=== PATIENT | female | born 1980 | race Caucasian/White ===

== ENCOUNTER 2017-05-06 11:11 | Emergency (ER) | payer OTHER, BC ==
[2017-05-06 11:24] VITALS: BP 137/88
--- NOTE | 2017-05-06 12:39 | CT ---
Head CT Technique: Multiple axial sections through the brain were obtained. Intravenous contrast was not utilized. Comparison: No prior head CT exam is available. Findings: Ventricles along with basal cisterns and sulci over the convexities are within normal limits for the patient's age. No abnormal parenchymal densities are seen. No evidence of intracranial hemorrhage. No midline shift or mass effect is seen. Bone window settings were reviewed which shows the visualized sinuses to appear clear. No acute calvarial abnormality is seen. Impression: 1. Nothing acute is identified on noncontrast head CT exam. Diagnostic code #1
--- NOTE | 2017-05-06 12:58 | EDM.PDOC ---
ED HPI GENERAL MEDICAL PROBLEM - General Chief Complaint: Head Injury Stated Complaint: HEAD INJURY Time Seen by Provider: 05/06/17 11:52 Source of Information: Reports: Patient History Limitations: Reports: No Limitations - History of Present Illness INITIAL COMMENTS - FREE TEXT/NARRATIVE: 36-year-old female presents for evaluation and treatment of head injury. Reportedly the patient was ice skating. She fell around 10:30 today. She went backwards landing first on her buttocks and hitting the back of her head on ice. Her friend reports hearing a very loud cracking sound. She states she did not lose consciousness but she has retrograde amnesia surrounding the event. Friend reports they helped her off the ice and had her sit on a chair. She did not recall about 10 minutes worth of time around the fall. She is currently denying any nausea, vomiting, blurry vision, double vision or any neck pain. She does have a headache. No chest pain or shortness of breath. No pain in her back. She did have a Motrin prior to arrival in the ER. Treatments GARDEN CONSULTANT: Reports: Other (see below) Other Treatments GARDEN CONSULTANT: motrin GARDEN CONSULTANT Head Pain Score (Numeric/FACES): 5 - Related Data Allergies Allergy/AdvReac Type Severity Reaction Status Date / Time ciprofloxacin HCl Allergy Anaphylactic Verified 05/06/17 11:19 [From Cipro] Shock levofloxacin [From Levaquin] Allergy Anaphylactic Verified 05/06/17 11:19 Shock Home Meds: Home Meds Levothyroxine Sodium [Levoxyl] 125 mcg PO DAILY 11/28/14 [History] Compounded T3. 1 dose PO DAILY 05/06/17 [History] Past Medical History Other Cardiovascular History: varicose veins in leg Other Psychiatric History: pt states that she recently had given to her still born child at 37 weeks gestation Other Endocrine/Metabolic History: Margot's disease Social & Family History - Tobacco Use Smoking Status *Q: Never Smoker Second Hand Smoke Exposure: No - Recreational Drug Use Recreational Drug Use: No ED ROS GENERAL - Review of Systems Review Of Systems: See Below HEENT: Denies: Vision Change GI/Abdominal: Denies: Nausea, Vomiting Neurological: Reports: Headache, Other (antrograde amnesia around 10 minutes). Denies: Numbness, Syncope, Tingling ED EXAM, HEAD INJURY - Physical Exam Exam: See Below Exam Limited By: No Limitations General Appearance: Alert, WD/WN, No Apparent Distress Head: Atraumatic, Normocephalic Nexus Criteria: No: Posterior, Midline Cervical Tenderness, Evidence of Intoxication, Altered Level of Consciousness, Focal Neurological Deficit, Painful Distraction Injuries Eyes: Bilateral Eye: EOMI, Normal Inspection, PERRL Ears: Normal External Exam. No: TM Blood Nose: Normal Inspection Throat/Mouth: Normal Inspection, Normal Lips, Normal Voice, No Airway Compromise Neck: Non-Tender, Full Range of Motion, Normal Alignment, Normal Inspection Respiratory: No Respiratory Distress, Lungs Clear, Normal Breath Sounds Cardiovascular: Normal Peripheral Pulses, Regular Rate, Rhythm, No Murmur Neurologic: surveying or spatial science technician II-XII nml As Tested, Alert, Normal Mood/Affect, Oriented x 3, Other (normal finger to nose testing, normal heel to beck testing, normal gait) Skin: Normal Color, Warm/Dry - [place] Coma Score Best Eye Response (Hany): (4) Open Spontaneously Best Verbal Response (Hany): (5) Oriented Best Motor Response ([place]): (6) Obeys Commands Course - Vital Signs Last Recorded V/S: Last Vital Signs Temp 36.2 C 05/06/17 11:20 Pulse 82 05/06/17 11:20 Resp 16 05/06/17 11:20 BP 137/88 05/06/17 11:20 Pulse Ox 98 05/06/17 11:20 - Radiology Interpretation Free Text/Narrative:: Head CT Technique: Multiple axial sections through the brain were obtained. Intravenous contrast was not utilized. Comparison: No prior head CT exam is available. Findings: Ventricles along with basal cisterns and sulci over the convexities are within normal limits for the patient's age. No abnormal parenchymal densities are seen. No evidence of intracranial hemorrhage. No midline shift or mass effect is seen. Bone window settings were reviewed which shows the visualized sinuses to appear clear. No acute calvarial abnormality is seen. Impression: 1. Nothing acute is identified on noncontrast head CT exam. - Re-Assessments/Exams Free Text/Narrative Re-Assessment/Exam: 05/06/17 12:[address] results with the patient. I feel she likely has a concussion. Will discharge home with follow-up. Discharge instructions as documented. Departure - Departure Time of Disposition: 12:54 Disposition: Home, Self-Care 01 Condition: Fair Clinical Impression: Concussion injury of brain - Discharge Information Instructions: Concussion, Adult, [id number] Referrals: Finesse Reagan [Primary Care Provider] - Forms: ED Department Discharge Additional Instructions: [id number] Tylenol and Motrin as needed for headache and symptoms. Rest. Recommend brain rest. Recommend reducing stimulating activity such as TV, computer, reading, etc. as much as you're able to. Follow-up with your primary care provider in 1-2 weeks for recheck of your symptoms. Please return the ER if your symptoms change or worsen. In particular related to see you for any seizures, headaches not relieved by Tylenol or Motrin, more than 2 episodes of vomiting, change in demeanor any other concerning symptoms.
== END 2017-05-06 13:05 | disposition home or self-care (01) ==
LOC: JD.ED 11:11
DX: S06.0X0A Concussion without loss of consciousness, initial encounter (principal); Z88.1 Allergy status to other antibiotic agents; Z79.899 Other long term (current) drug therapy; Z88.8 Allergy status to other drugs, medicaments and biological substances; W18.00XA Striking against unspecified object with subsequent fall, initial encounter; Y93.21 Activity, ice skating
CPT/HCPCS: 70450; 70450-26; 99284; 99284-25

== ENCOUNTER 2019-12-25 14:15 | Emergency (ER) | payer OTHER ==
[2019-12-25 14:52] VITALS: BP 114/71; PULSE 75
--- NOTE | 2019-12-25 15:54 | EDM.PDOC ---
ED HPI GENERAL MEDICAL PROBLEM - General Chief Complaint: Abdominal Pain Stated Complaint: 23 WEEKS PREG, POSSIBLE HERNIA Time Seen by Provider: 12/25/19 15:54 - History of Present Illness INITIAL COMMENTS - FREE TEXT/NARRATIVE: Patient left without being seen - Related Data Allergies Allergy/AdvReac Type Severity Reaction Status Date / Time ciprofloxacin HCl Allergy Anaphylactic Verified 12/25/19 14:52 [From Cipro] Shock levofloxacin [From Levaquin] Allergy Anaphylactic Verified 12/25/19 14:52 Shock Home Meds: Home Meds #103/Iron Fumarate/Fa [ ] 1 tab PO DAILY 12/25/19 [History] Past Medical History Other Cardiovascular History: varicose veins in leg COMMUNITY HEALTH EDUCATION COORDINATOR History: Reports: Other COMMUNITY HEALTH EDUCATION COORDINATOR History: G 6: p 4 Psychiatric History: Reports: Anxiety, Depression Other Psychiatric History: pt states that she recently had given to her still born child at 37 weeks gestation Other Endocrine/Metabolic History: Margot's disease - Infectious Disease History Infectious Disease History: Reports: None Social & Family History - Tobacco Use Smoking Status *Q: Never Smoker - Recreational Drug Use Recreational Drug Use: No ED ROS GENERAL - Review of Systems Review Of Systems: Unable To Obtain Reason Not Obtained: Left without being seen ED EXAM, GI/ABD - Physical Exam Exam: See Below Text/Narrative:: Left without being seen Course - Vital Signs Last Recorded V/S: Last Vital Signs Temp 36.5 C 12/25/19 14:45 Pulse 75 12/25/19 14:45 Resp 20 12/25/19 14:45 BP 114/71 12/25/19 14:45 Pulse Ox 100 12/25/19 14:45 Departure - Departure Time of Disposition: 13:00 Disposition: Left Without Being Seen 07 Clinical Impression: Patient left without being seen - Discharge Information Referrals: Kera Arroyo MD [Primary Care Provider] - Forms: ED Department Discharge Sepsis Event Note (ED) - Evaluation Sepsis Screening Result: No Definite Risk - Focused Exam Vital Signs: Vital Signs Temp Pulse Resp BP Pulse Ox 12/25/19 14:45 36.5 C 75 20 114/71 100
== END 2019-12-25 16:30 | disposition left against medical advice (07) ==
LOC: JD.ED 14:15
DX: Z53.21 Procedure and treatment not carried out due to patient leaving prior to being seen by health care provider (principal)

== ENCOUNTER 2020-04-29 06:52 | Inpatient (IN) | payer OTHER ==
--- NOTE | 2020-04-27 15:04 | PCM.LDHP ---
L&D History of Present Illness - General Date of Service: 04/29/20 Admit Problem/Dx: Admission Diagnosis/Problem Admission Diagnosis/Problem 04/27/20 14:42 Kimberley is a 39-year-old 6 para 4-1-0-4 white female who has an JOSE of 05/06/2020 placing her at 39-0/7 weeks gestational age upon admission on 04/29/2020 for an induction of labor. Source of Information: Patient History Limitations: Reports: No Limitations - History of Present Illness Introduction:: Kimberley is a 39-year-old 6 para 4-1-0-4 white female who has an JOSE of 05/06/2020 placing her at 39-0/7 weeks gestational age upon admission on 04/29/2020 for an induction of labor. The procedure/process of induction of labor, its risks, benefits, alternatives of care including allowing for natural onset of labor all discussed with patient as well as the follow-up of labor. She appears understand and wishes to proceed. Patient is interested in delivery at this time because of history of stillbirth which occurred with her last at 36 weeks gestational age secondary to cord accident. She also has a large fibroid measuring approximately 10.5 x 6.9 x 8.1 cm which has increased in size during the course of the . OPERATIONS SUPPORT MANAGER history: Kimberley is a 6 para 4-1-0-4. Her JOSE of 05/06/2020 was determined by an early ultrasound and supported by multiple other ultrasounds during the course of the She had menarche at approximately 14 to 15 years. She had regular menses on a monthly basis. Not using any control at the time of conception. She denies any STIs or abnormal Pap smears in the past. Her obstetric history includes the followin. Male infant born 09/28/2001-39 weeks - 6 hours of labor7 pounds [address] ouncesNS[facility] Male infant born 10/20/2004-41 weeks - 14 hours of labor7 pounds 8 ounces- NSVDuseSt. [facility]. Male infant born 09/23/2005-41 weeks gestational age17 hours of labor8 pounds 9 ouncesNSVDepidural used-[facility] child's name is Wilman Dang. Female infant born 5 [birth year]-38 weeks gestational age8 hours of labor6 pounds 3 ouncesNSVDspinal anesthesia useSt. [facility]. Female infantfetal demiseinduced labor on 11/08/2014 at 36-4/7 weeks gestational agesuspected cord accident as cause of demise course: Patient was initially seen by Dr. North during the course of this and transferred care at 33-1/7 weeks gestational age. She was seen regularly before transfer and after transfer. Because of patient's past history she underwent testing on a weekly basis with biophysical profiles which all were reassuring. Ultrasound done serially showed a steady increase in a fibroid located anteriorly and to the left side and above the pelvis. This fibroid on her most recent evaluation on 04/16/2020 was 10.5 x 6.9 x 8.1 cm. Patient has had 2 hernias which have enlarged during the course of the . AN umbilical hernia opening measuring 1.5 cm on ultrasound and an upper abdominal anterior wall hernia wall opening measuring 2.1 cm on ultrasound. Both have been relatively symptomatic during the course of the . Patient reports good activity. She desires an epidural. Group B strep screen is negative. Patient has a history of Margot's disease but early levels were normal. She began taking levothyroxine late in the at a dosage of 25 mcg/day due to an increasing TSH indicating hypothyroidism. She has heterozygous MTHFR mutation [id number]. She has a history of polycystic ovarian syndrom Varicose veins are present especially in her right lower extremity which are severe and symptomatic. Patient has been using support stockings for therapy. She also has had a vitamin D deficiency and has been taking replacement. Patient is rubella immune. She had her hepatitis B immunization in 1995. Allergies: 1. Levaquin tabs which cause anaphylaxis 2. Cipro tabs which cause anaphylaxis 3. Gluten which causes GI upset 4. Dairy products which cause GI upset Medications: 1. Levothyroxine sodium 25 mcg/day 2. vitamins 1 p.o. daily 3. Folic acid 400 mcg p.o. daily 4. Vitamin D1 0.25 mg (50,000 units 1 capsule weekly for 6 weeks during the course of the . Past medical history: 1. x5 2. One of her NSVDs was a demise at 36+ weeks gestational age 3. Severe lower extremity varicositiesright leg greater than left leg 4. Hypothyroidism on replacementpatient has had Margot's disease. 5. Significant allergies with Cipro and Levaquin which cause anaphylaxis. Past surgical history: 1. Cholecystectomy 2007 2. [place] teeth extraction 2000 Family history: Mother is alivestatus post hysterectomy for benign reasons. Father is alive and well but has a history of hepatitis. 2 brothers and 3 sisters alive and well. Maternal grandfather with hypothyroidism coronary artery bypass graft and prostate cancer. Maternal grandmother with stent placement. Paternal grandfather secondary to Alzheimer's disease. Paternal grandmother secondary to old age. No anesthesia, clotting, bleeding, related problems otherwise noted in the family. 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 They live in the [place], [place] area. She is a college graduate. 's name is Dov. She does not use any significant alcohol, drugs or tobacco. Review of systems: In general patient has no complaints. Baby has been active. No significant contractions have been noted. Skin: Negative Lungs: No infectious symptoms or shortness of breath Cardiovascular: No chest pain or exercise intolerance Breasts: No lumps, changes in size, pain, dimpling, discharge or axillary or supraclavicular concerns. changes GI: Negative : Body habitus changes associated with . Musculoskeletal/extremity: Significant for severe varicosities in bilateral lower extremities right side greater than left Neurological: Negative Physical exam: In general the patient is well-developed, well-nourished, pleasant female of stated age in no acute distress. On last evaluation clinic on 04/24/2020 her blood pressure was 102/68. Her weight was 238 with a pre weight of 237.4 pounds. Height is 5 feet 8 inches. Prepregnancy body mass index 32.7. Her heart rate was 144 and her fundal height was 39.5 cm which was proximately a week ahead of schedule. Baby is in a vertex presentation. Uterine fibroid palpated in left lower quadrant. Skin is warm dry without lesions. HEENT, neck and back within normal limits. Lungs are clear with good breath sounds in all lung gordon. Cardiovascular exam shows regular and rhythm without murmurs. Breast exam is deferred at this time. Patient does plan to breast-feed. Abdomen is gravid with fundal height of 39.5 cm. Patient has 2 hernias one anterior midline above the uterus which is about 4 x 5 cm in diameter and bulges approximately 1 cm. Second 1 is an umbilical hernia which is about 1.5 cm in diameter. Baby is felt to be in vertex presentation by Alhaji maneuvers and by cervical exam. Genital per digital exam shows cervix to be 2 cm, 60% effaced, soft, mid position and -3 station.. Extremities and neurological exam show bilateral lower extremity varicosities right side greater than left. Or varicosities are less extreme.. - Related Data Allergies/Adverse Reactions: Allergies Allergy/AdvReac Type Severity Reaction Status Date / Time ciprofloxacin HCl Allergy Anaphylactic Verified 12/25/19 14:52 [From Cipro] Shock levofloxacin [From Levaquin] Allergy Anaphylactic Verified 12/25/19 14:52 Shock Home Medications: Home Meds #103/Iron Fumarate/Fa [ ] 1 tab PO DAILY 12/25/19 [History] Past Medical History Other Cardiovascular History: varicose veins in leg OPERATIONS SUPPORT MANAGER History: Reports: Other OB/BYN History: G 6: p 4 Psychiatric History: Reports: Anxiety, Depression Other Psychiatric History: pt states that she recently had given to her still born child at 37 weeks gestation Other Endocrine/Metabolic History: Margot's disease - Infectious Disease History Infectious Disease History: Reports: None H&P Review of Systems - Review of Systems: Review Of Systems: See Below L&D Exam - Exam Exam: See Below Problem List Initiated/Reviewed/Updated: Yes Assessment/Plan Comment:: 1. Kimberley is a 39-year-old 6 para 4-1-0-4 white female who has an JOSE of 05/06/2020 placing her at 39-0/7 weeks gestational age upon admission on 04/29/2020 for an induction of labor. 2. Risk factors for the include the following: History of 36-2/7-week demise secondary to cord accident with last , uterine fibroid measuring 10.5 cm in greatest dimension, hernia x2 as described above, history of Margot's disease now hypothyroid on replacement, MTHFR mutation [id number] status, history of PCOS, history of severe lower extremity varicosities 3. Group B strep negative 4. Patient desires epidural in labor 5. Patient plans to breast-feed 6. The patient is aware that a large uterine fibroid as she has may interfere with descent of the baby. She is aware that this may increase her risk for section. Plan: 1. Pitocin induction of labor followed by AROM augmentation when possible 2. Epidural as needed per patient desire 3. Monitor labor very closely because of history of fibroid and because of history of demise. 4. Maintain thyroid hormone replacement in the hospital 5. Support breast-feeding decision if she desires to proceed in that fashion 6. Routine labor care 7. Admission labs to include CBC, COVID-19 testing, RPR
[~2020-04-29 06:52] MED LIST: Bupivacaine 0.25% 10 ML SDV ONE
[2020-04-29] MEDS ORDERED: Ondansetron 4 MG/2 ML SDV IVPUSH PRN ×2 (07:00→11:00)
[2020-04-29] MEDS ORDERED: Oxytocin/Lactated Ringers 10 UNIT/1,000 ML BAG IV SCH ×2 (07:00→07:15)
[2020-04-29] MEDS ORDERED: Nalbuphine 10 MG/1 ML Vial IVPUSH PRN (07:00)
[2020-04-29] MEDS ORDERED: Sodium Chloride 0.9% 10 ML Syringe FLUSH PRN (07:00)
[2020-04-29] MEDS: Lactated Ringers 1,000 ML IV SCH ×4 (07:56→15:22)
[2020-04-29] MEDS ORDERED: ePHEDrine 50 MG/ML SDV IVPUSH PRN (11:00)
[2020-04-29] MEDS ORDERED: Bupivacaine/fentaNYL/NS 100 ML Bag EPIDUR SCH (11:00)
[2020-04-29] MEDS ORDERED: fentaNYL 100 MCG/2 ML SDV EPIDUR ONE (11:02)
--- NOTE | 2020-04-29 11:06 | PCM.PREANE ---
Preanesthetic Assessment - Procedure Proposed Procedure: epidural - Anesthesia/Transfusion/Family Hx Anesthesia History: Prior Anesthesia Without Reaction Family History of Anesthesia Reaction: No Transfusion History: No Prior Transfusion(s) Intubation History: Unknown - Review of Systems General: No Symptoms Pulmonary: No Symptoms Cardiovascular: No Symptoms Gastrointestinal: No Symptoms (GERD) Neurological: No Symptoms Other: Reports: Thyroid Problems (Hypothyroid/Hashimot's disease) - Physical Assessment NPO Status Date: 04/29/20 NPO Status Time: 08:00 Vital Signs: Last Vital Signs Temp 37.0 C 04/29/20 07:00 Pulse 81 04/29/20 07:00 Resp 16 04/29/20 07:00 BP 122/74 04/29/20 07:00 Pulse Ox 99 04/29/20 07:00 Height: 1.73 m Weight: 108.771 kg ASA Class: 2 Mental Status: Alert & Oriented x3 Airway Class: Mallampati = 2 Dentition: Reports: Normal Dentition, Caries Thyro-Mental Finger Breadths: 3 Mouth Opening Finger Breadths: 3 ROM/Head Extension: Full Lungs: Clear to Auscultation, Normal Respiratory Effort Cardiovascular: Regular Rate, Regular Rhythm, No Murmurs - Lab Values: Laboratory Last Values WBC 9.15 K/mm3 (3.98-10.04) 04/29/20 07:20 RBC 3.97 M/mm3 (3.98-5.22) L 04/29/20 07:20 Hgb 11.5 gm/dl (11.2-15.7) D 04/29/20 07:20 Hct 34.0 % (34.1-44.9) L 04/29/20 07:20 MCV 85.6 fl (79.4-94.8) 04/29/20 07:20 MCH 29.0 pg (25.6-32.2) 04/29/20 07:20 MCHC 33.8 g/dl (32.2-35.5) 04/29/20 07:20 RDW Std Deviation 41.9 fL (36.4-46.3) 04/29/20 07:20 Plt Count 266 K/mm3 (182-369) 04/29/20 07:20 MPV 9.5 fl (9.4-12.3) 04/29/20 07:20 Neut % (Auto) 68.8 % (34.0-71.1) 04/29/20 07:20 Lymph % (Auto) 19.2 % (19.3-51.7) L 04/29/20 07:20 [place] % (Auto) 9.4 % (4.7-12.5) 04/29/20 07:20 Eos % (Auto) 1.6 (0.7-5.8) 04/29/20 07:20 Baso % (Auto) 0.2 % (0.1-1.2) 04/29/20 07:20 Neut # (Auto) 6.29 K/mm3 (1.56-6.13) H 04/29/20 07:20 Lymph # (Auto) 1.76 K/mm3 (1.18-3.74) 04/29/20 07:20 [place] # (Auto) 0.86 K/mm3 (0.24-0.36) H 04/29/20 07:20 Eos # (Auto) 0.15 K/mm3 (0.04-0.36) 04/29/20 07:20 Baso # (Auto) 0.02 K/mm3 (0.01-0.08) 04/29/20 07:20 SARS-CoV-2 RNA (JOHNNIE) Negative (NEGATIVE) 04/29/20 07:10 Above labs reviewed and noted and within acceptable ranges to proceed with epidural. - Allergies Allergies/Adverse Reactions: Allergies Allergy/AdvReac Type Severity Reaction Status Date / Time ciprofloxacin HCl Allergy Anaphylactic Verified 04/29/20 07:00 [From Cipro] Shock Dairy Products Allergy Other Verified 04/29/20 07:00 gluten Allergy Other Verified 04/29/20 07:00 levofloxacin [From Levaquin] Allergy Anaphylactic Verified 04/29/20 07:00 Shock - Anesthesia Plan Pre-Op Medication Ordered: None - Acknowledgements Anesthesia Type Planned: Epidural Pt an Appropriate Candidate for the Planned Anesthesia: Yes Alternatives and Risks of Anesthesia Discussed w Pt/Guardian: Yes Pt/Guardian Understands and Agrees with Anesthesia Plan: Yes PreAnesthesia Questionnaire HEENT History: Reports: Other (See Below) Other HEENT History: wears glasses Other Cardiovascular History: varicose veins in right leg SENIOR DESIGNER History: Reports: Fibroids, , Other (See Below) Other OB/BYN History: PCOS, 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 MTHFR gene mutation Psychiatric History: Reports: Anxiety, Depression Other Psychiatric History: pt states that she recently had given to her still born child at 37 weeks gestation Other Endocrine/Metabolic History: Margot's disease. vitamin d deficiency. - Infectious Disease History Infectious Disease History: Reports: Chicken Pox - Past Surgical History HEENT Surgical History: Reports: Oral Surgery GI Surgical History: Reports: Cholecystectomy, Hernia, Abdominal, Other (See Below) Other GI Surgeries/Procedures: 2 hernias - SUBSTANCE USE Tobacco Use Status *Q: Never Tobacco User Recreational Drug Use History: No - HOME MEDS Home Medications: Home Meds Folic Acid 0.4 mg PO DAILY 04/28/20 [History] Levothyroxine Sodium [Levothyroxine] 25 mcg PO DAILY 04/28/20 [History] No122/Iron/Folic Acid [ Multi Tablet] 1 each PO DAILY 04/28/20 [History] - CURRENT (IN HOUSE) MEDS Current Meds: Current Medications Ephedrine Sulfate (Ephedrine Sulfate) 5 mg IVPUSH ASDIRECTED PRN PRN Reason: Hypotension Fentanyl/Bupivacaine HCl (Fentanyl/Bupivacaine/Ns 2 Mcg-0.125% 100 Ml) 100 ml EPIDUR ASDIRECTED MIKAELA Oxytocin/Lactated Ringer's (Pitocin In Lr 10 Units/1,000 Ml) 10 unit in 1,000 mls @ 500 mls/hr IV .CONTINUOUS MIKAELA Lactated Ringer's (Ringers, Lactated) 1,000 mls @ 100 mls/hr IV ASDIRECTED MIKAELA Last Admin: 04/29/20 07:56 Dose: 100 mls/hr Documented by: Oxytocin/Lactated Ringer's (Pitocin In Lr 10 Units/1,000 Ml) 10 unit in 1,000 mls @ 12 mls/hr IV TITRATE MIKAELA; Protocol Last Titration: 04/29/20 09:47 Dose: 10 munits/min, 60 mls/hr Documented by: Nalbuphine HCl (Nubain) 10 mg IVPUSH Q2H PRN PRN Reason: Pain Ondansetron HCl (Zofran) 4 mg IVPUSH Q4H PRN PRN Reason: Nausea/Vomiting Ondansetron HCl (Zofran) 4 mg IVPUSH ONETIME PRN PRN Reason: Nausea/Vomiting Sodium Chloride (Saline Flush) 10 ml FLUSH ASDIRECTED PRN PRN Reason: Keep Vein Open Discontinued Medications Fentanyl (Sublimaze) 100 mcg EPIDUR ONETIME ONE Stop: 04/29/20 11:03 Miscellaneous Medication (Phenylephrine 1 Mg/10 Ml-Ns) 0 mg IVPUSH ONETIME ONE Stop: 04/29/20 11:01
[2020-04-29] MEDS ORDERED: Benzocaine/Menthol 20%-0.5% Spray 56 GM Canister TOP PRN (17:06)
[2020-04-29] MEDS ORDERED: Docusate Sodium 100 MG Cap PO PRN (17:06)
[2020-04-29] MEDS ORDERED: Witch Hazel Medicated Pads 40/Jar TOP PRN (17:06)
--- NOTE | 2020-04-29 17:11 | PCM.SN.2 ---
- Free Text/Narrative Note: Delivery note: Kimberley is a 39-year-old 6 now para 5-1-0-5 white female who has an JOSE of 05/06/2020 placing her at 39-0/7 weeks gestational age upon admission on 04/29/2020 for an induction of labor. Patient has a history of demise with last at 36 weeks secondary to suspected cord accident. She has a 10 cm fibroid which has been growing throughout the . 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 She also has a umbilical hernia and an anterior wall hernia located intermediate between the umbilicus and xiphoid process. Patient was admitted and started on Pitocin. She underwent rupture membranes. Placement of internal monitors. She had an epidural for labor analgesia. Sequential compression devices were used for DVT prophylaxis. At approximately 1640 hrs. on 04-29-2020 the patient became completely dilated and began pushing. After 2 contractions the patient delivered a viable, jon, male with Apgars of 8 and 9, a weight of 3810 g (8 pounds 6.4 ounces) and a length of 21.5 inches in a direct occiput anterior position over an intact perineum. There is nuchal cord x1 which was reduced over the baby's head. The baby was placed on mom's abdomen. Nose and mouth were bulb suctioned and the baby was dried with warm blanket. IV Pitocin infusion was increased to 500 cc/h per protocol to increase uterine tone and decrease likelihood of bleeding. The umbilical cord was allowed to pulsate x3 minutes and then was clamped x2 and cut by the baby's Father Virgilio. The umbilical cord had 3 vessels. Cord blood was obtained. The placenta then delivered in a Jackson presentation, appeared intact and complete and was discarded per patient desire. The perineum appeared intact. No sutures were required. Estimated blood loss was 200 cc. Patient plans to breast-feed. Epidural catheter was removed at the end of the procedure without problems. The tip of the catheter was shown to the patient to inform her that the whole catheter had been removed.
[2020-04-29] MEDS: Ibuprofen 600 MG Tab PO PRN ×2 (17:50→23:30)
[2020-04-29] MEDS: Acetaminophen 325 MG Tab PO PRN (21:19)
[2020-04-30] MEDS: Ibuprofen 600 MG Tab PO PRN ×2 (04:38→11:58)
--- NOTE | 2020-04-30 07:27 | PCM.SN.2 ---
- Free Text/Narrative Note: note: Patient is doing well in the period. Minimal lochia, voiding well, ambulated without problems. Nursing without concerns. Patient's anterior abdominal wall hernia and umbilical hernia are significantly less symptomatic after delivery. Right leg varicosities are not painful at this point having been so prior to delivery also. Patient is afebrile, vital signs are stable Abdomen is flat, soft, uterus is as above the umbilicus and is firm and nontender. It is consistent with uterus with a 10 cm fibroid. Hernias are very difficult to palpate. Minimally symptomatic. Legs are nontender. Significant varicosities persist in bilateral lower extremitiesright greater than left. Assessment: 1. recovery going well. 2. Anterior abdominal wall hernia/incisional hernia minimally symptomatic as is umbilical hernia. 3. Lower extremity varicosities persists but less symptomatic Plan: Routine care. Patient be discharged home within the next 24-48 hours.
--- NOTE | 2020-04-30 07:33 | PCM48HPAN ---
Post Anesthesia Note - EVALUATION WITHIN 48HRS OF ANESTHETIC Vital Signs in Normal Range: Yes Patient Participated in Evaluation: Yes Respiratory Function Stable: Yes Airway Patent: Yes Cardiovascular Function Stable: Yes Hydration Status Stable: Yes Pain Control Satisfactory: Yes Nausea and Vomiting Control Satisfactory: Yes Mental Status Recovered: Yes Vital Signs: Last Vital Signs Temp 36.7 C 04/30/20 04:42 Pulse 67 04/30/20 04:42 Resp 15 04/30/20 04:42 BP 113/74 04/30/20 04:42 Pulse Ox 97 04/30/20 04:42 - COMMENTS/OBSERVATIONS Free Text/Narrative:: no anesthesia complications noted
--- NOTE | 2020-04-30 07:33 | PCM.DCSUM1 ---
Discharge Summary - Hospital Course Free Text/Narrative:: Kimberley is a 39-year-old 6 now para 5-1-0-5 white female who had an JOSE of 05/06/2020 placing her at 39-0/7 weeks gestational age upon admission on 04/29/2020 for induction of labor. Patient has a history of demise with last at 36 weeks secondary to suspected cord accident. She has a 10 cm fibroid which has been growing throughout the . 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 She also has a umbilical hernia and an anterior wall hernia located shelter between the umbilicus and xiphoid process in the area of one of her laparoscopic cholecystectomy scars. Patient was admitted and started on Pitocin. She underwent rupture membranes. She had placement of internal monitors. She had an epidural for labor analgesia. Sequential compression devices were used for DVT prophylaxis. At approximately 1640 hrs. on 04-29-2020 the patient became completely dilated and began pushing. After 2 contractions the patient delivered a viable, jon, male infant with Apgars of 8 and 9, a weight of 3810 g (8 pounds 6.4 ounces) and a length of 21.5 inches in a direct occiput anterior position over an intact perineum. There is nuchal cord x1 which was reduced over the baby's head. The baby was placed on mom's abdomen. Nose and mouth were bulb suctioned and the baby was dried with warm blanket. IV Pitocin infusion was increased to 500 cc/h per protocol to increase uterine tone and decrease likelihood of bleeding. The umbilical cord was allowed to pulsate x3 minutes and then was clamped x2 and cut by the baby's Father Virgilio. The umbilical cord had 3 vessels. Cord blood was obtained. The placenta then delivered in a Jackson presentation, appeared intact and complete and was discarded per patient desire. The perineum appeared intact. No sutures were required. Estimated blood loss was 200 cc. Epidural catheter was removed at the end of the procedure without problems. The tip of the catheter was shown to the patient to inform her that the whole catheter had been removed. patient is doing well. She is bottlefeeding. She is desiring to go home so she will be with her other 4 children. She has had minimal lochia, is voiding well and is ambulating without concerns. Condition: Good Diagnosis: Stroke: No - Discharge Data Discharge Date: 04/30/20 Discharge Disposition: Home, Self-Care 01 Condition: Good - Referral to Home Health Primary Care Physician: Rodrigue Carter MD - Patient Instructions Diet: Regular Diet as Tolerated Activity: As Tolerated (No intercourse or tampons until bleeding resolves) Driving: May Drive Today Showering/Bathing: May Shower Showering/Bathing, Other: May take a bath Notify Provider of: Fever, Increased Pain, Swelling and Redness, Nausea and/or Vomiting - Discharge Plan Home Medications: Home Meds Levothyroxine Sodium [Levothyroxine] 25 mcg PO DAILY 04/28/20 [History] No122/Iron/Folic Acid [ Multi Tablet] 1 each PO DAILY 04/28/20 [History] Acetaminophen [Tylenol] 650 mg PO Q4H PRN tablet 04/30/20 [Rx] Ibuprofen [Motrin] 600 mg PO Q4H PRN tablet 04/30/20 [Rx] Referrals: Rodrigue Carter MD [Primary Care Provider] - (Return to clinic[facility]. [facility] we eks.) - Discharge Summary/Plan Comment DC Time >30 min.: No Discharge Summary/Plan Comment: Discharge instructions: 1. Discharge home 2. Diet, activity and follow-up discussed with patient. Recommend nursing diet with increased calories and calcium. 3. Precautions given concern increased pain, bleeding, temperature, signs/sympto ms of DVT/PE. 4. Medications per home medication was printed, discussed with and given to the patient. 5. Return to clinic-Dr. Carter-[facility] in 2 weeks. Diagnosis: 1. Term -delivered 2. Hypothyroidism on medications 3. Anterior abdominal wall/incisional hernia 4. Umbilical hernia 5. Bilateral lower extremity varicosities 6. History of previous intrauterine demise Condition: Good - Patient Data Vitals - Most Recent: Last Vital Signs Temp 36.7 C 04/30/20 04:42 Pulse 67 04/30/20 04:42 Resp 15 04/30/20 04:42 BP 113/74 04/30/20 04:42 Pulse Ox 97 04/30/20 04:42 Weight - Most Recent: 108.771 kg I&O - Last 24 hours: Intake & Output 04/29/20 04/30/20 04/30/20 22:59 06:59 14:59 Intake Total 2200 Balance 2200 Lab Results - Last 24 hrs: Laboratory Results - last 24 hr 04/29/20 04/29/20 Range/Units 07:10 07:20 RPR Non-reactive (NONREACTIVE) SARS-CoV-2 RNA (JOHNNIE) Negative (NEGATIVE) Med Orders - Current: Current Medications Acetaminophen (Tylenol) 650 mg PO Q4H PRN PRN Reason: mild pain or fever Last Admin: 04/29/20 21:19 Dose: 650 mg Documented by: Benzocaine/Menthol (Dermoplast Pain Relief Blossom) 0 gm TOP ASDIRECTED PRN PRN Reason: Perineal Comfort Measure Last Admin: 04/29/20 17:50 Dose: 1 applic Documented by: Docusate Sodium (Colace) 100 mg PO BID PRN PRN Reason: Constipation Ibuprofen (Motrin) 600 mg PO Q4H PRN PRN Reason: Mild pain or fever Last Admin: 04/30/20 04:38 Dose: 600 mg Documented by: Prenat Multivit/Highfill/Iron/Folic Ac ( Plus Iron) 1 each PO DAILY [facility] Deborah Choudhury (Tucks) 1 pad TOP ASDIRECTED PRN PRN Reason: Perineal Comfort Measure Last Admin: 04/29/20 17:50 Dose: 1 applic Documented by: Discontinued Medications Ephedrine Sulfate (Ephedrine Sulfate) 5 mg IVPUSH ASDIRECTED PRN PRN Reason: Hypotension Fentanyl (Sublimaze) 100 mcg EPIDUR ONETIME ONE Stop: 04/29/20 11:03 Last Admin: 04/29/20 11:13 Dose: 100 mcg Documented by: Fentanyl/Bupivacaine HCl (Fentanyl/Bupivacaine/Ns 2 Mcg-0.125% 100 Ml) 100 ml EPIDUR ASDIRECTED [facility] Last Admin: 04/29/20 11:13 Dose: 100 ml Documented by: Oxytocin/Lactated Ringer's (Pitocin In Lr 10 Units/1,000 Ml) 10 unit in 1,000 mls @ 500 mls/hr IV .CONTINUOUS MIKAELA Lactated Ringer's (Ringers, Lactated) 1,000 mls @ 100 mls/hr IV ASDIRECTED [facility] Last Admin: 04/29/20 15:22 Dose: 100 mls/hr Documented by: Oxytocin/Lactated Ringer's (Pitocin In Lr 10 Units/1,000 Ml) 10 unit in 1,000 mls @ 12 mls/hr IV TITRATE MIKAELA; Protocol Last Titration: 04/29/20 16:45 Dose: 83.33 munits/min, 500 mls/hr Documented by: Miscellaneous Medication (Phenylephrine 1 Mg/10 Ml-Ns) 0 mg IVPUSH ONETIME ONE Stop: 04/29/20 11:01 Last Admin: 04/30/20 00:09 Dose: Not Given Documented by: Nalbuphine HCl (Nubain) 10 mg IVPUSH Q2H PRN PRN Reason: Pain Non-Formulary Medication (Levothyroxine Sodium [Levothyroxine]) 25 mcg PO DAILY MIKAELA Ondansetron HCl (Zofran) 4 mg IVPUSH Q4H PRN PRN Reason: Nausea/Vomiting Ondansetron HCl (Zofran) 4 mg IVPUSH ONETIME PRN PRN Reason: Nausea/Vomiting Last Admin: 04/29/20 14:27 Dose: 4 mg Documented by: Sodium Chloride (Saline Flush) 10 ml FLUSH ASDIRECTED PRN PRN Reason: Keep Vein Open
[2020-04-30] MEDS: Acetaminophen 325 MG Tab PO PRN ×2 (08:19→15:58)
[2020-04-30] MEDS ORDERED: LEVOTHYROXINE SODIUM 25 MCG PO SCH (09:00)
[2020-04-30] MEDS ORDERED: Prenatal Multivitamin with Calcium/Folic Acid/Iron Tab PO SCH (09:00)
[2020-04-30 17:57] VITALS: BP 134/71; PULSE 63
== END 2020-04-30 17:40 | disposition home or self-care (01) | DRG 807 ==
LOC: JD.OB 06:52 → OBSVTOIN 16:45 → JD.OB 16:45
PROVIDERS: ADMIT Obstetrics & Gynecology; ATTEND Obstetrics & Gynecology
PROC: 10E0XZZ Delivery of Products of Conception, External Approach (ICD-10-PCS; principal; 2020-04-29)
PROC: 3E0R3BZ Introduction of Anesthetic Agent into Spinal Canal, Percutaneous Approach (ICD-10-PCS; 2020-04-29)
PROC: 3E033VJ Introduction of Other Hormone into Peripheral Vein, Percutaneous Approach (ICD-10-PCS; 2020-04-29)
DX: O69.81X0 Labor and delivery complicated by cord around neck, without compression, not applicable or unspecified (principal); Z37.0 Single live birth; Z3A.39 39 weeks gestation of pregnancy; O99.284 Endocrine, nutritional and metabolic diseases complicating childbirth; E03.9 Hypothyroidism, unspecified; Z79.890 Hormone replacement therapy; O75.89 Other specified complications of labor and delivery; K42.9 Umbilical hernia without obstruction or gangrene; K43.9 Ventral hernia without obstruction or gangrene; O34.13 Maternal care for benign tumor of corpus uteri, third trimester; D25.9 Leiomyoma of uterus, unspecified; O87.4 Varicose veins of lower extremity in the puerperium; O22.03 Varicose veins of lower extremity in pregnancy, third trimester; Z20.822 Contact with and (suspected) exposure to COVID-19
CPT/HCPCS: 01967; 36415; 51702; 59025; 59409; 85025; 86592; A9270-GY; J2405; J2590; J3010; J3490; J7120; U0002

== ENCOUNTER 2020-06-27 07:02 | Day surgery (SDC) | payer OTHER ==
[~2020-06-27 07:02] MED LIST changes: -Bupivacaine 0.25% 10 ML SDV ONE; +Lactated Ringers 1,000 ML IV SCH; +Lidocaine 1% 4 ML ONE; +Lidocaine 1%/Sod Bicarbonate in NS 8.4% 1 ML Syringe IDERM PRN; +Midazolam 1 MG/ML 2 ML SDV ONE; +Ondansetron 4 MG/2 ML SDV ONE; +Propofol 200 MG/20 ML SDV ONE; +Sodium Chloride 0.9% 10 ML Syringe FLUSH PRN; +ceFAZolin 1 GM Vial ONE; +fentaNYL 250 MCG/5 ML SDV ONE
[2020-06-27] MEDS ORDERED: Bupivacaine 0.5%/EPINEPHrine 1:200,000 50 ML MDV ONE (07:24)
--- NOTE | 2020-06-27 07:36 | PCM.PREANE ---
Preanesthetic Assessment - Procedure Proposed Procedure: lap incisional hernia repair with mesh - Anesthesia/Transfusion/Family Hx Anesthesia History: Prior Anesthesia Without Reaction Family History of Anesthesia Reaction: No Transfusion History: No Prior Transfusion(s) Intubation History: Unknown - Review of Systems General: No Symptoms Pulmonary: No Symptoms Cardiovascular: No Symptoms Gastrointestinal: No Symptoms Neurological: No Symptoms Other: Reports: Thyroid Problems - Physical Assessment NPO Status Date: 06/26/20 NPO Status Time: 18:00 Vital Signs: 113/85 62 97% 14 98.3 Height: 5 ft 8 in Weight: 99 kg ASA Class: 2 Mental Status: Alert & Oriented x3 Airway Class: Mallampati = 1 Dentition: Reports: Normal Dentition Thyro-Mental Finger Breadths: 3 Mouth Opening Finger Breadths: 3 ROM/Head Extension: Full Lungs: Clear to Auscultation, Normal Respiratory Effort Cardiovascular: Regular Rate, Regular Rhythm - Allergies Allergies/Adverse Reactions: Allergies Allergy/AdvReac Type Severity Reaction Status Date / Time ciprofloxacin HCl Allergy Anaphylactic Verified 06/26/20 08:23 [From Cipro] Shock Dairy Products Allergy Other Verified 06/26/20 08:23 gluten Allergy Other Verified 06/26/20 08:23 levofloxacin [From Levaquin] Allergy Anaphylactic Verified 06/26/20 08:23 Shock - Blood Blood Available: No - Acknowledgements Anesthesia Type Planned: General Anesthesia Pt an Appropriate Candidate for the Planned Anesthesia: Yes Alternatives and Risks of Anesthesia Discussed w Pt/Guardian: Yes Pt/Guardian Understands and Agrees with Anesthesia Plan: Yes PreAnesthesia Questionnaire HEENT History: Reports: Allergic Rhinitis, Impaired Vision, Other (See Below) Other HEENT History: wears glasses Cardiovascular History: Reports: None Other Cardiovascular History: varicose veins in right leg Respiratory History: Reports: None Gastrointestinal History: Reports: Other (See Below) Other Gastrointestinal History: abdominal hernia, umbilical hernia Genitourinary History: Reports: Other (See Below) Other Genitourinary History: demise DISCHARGE PLANNER History: Reports: Fibroids, , Other (See Below) Other OB/BYN History: PCOS, 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 Hematologic History: Reports: None Immunologic History: Reports: None Oncologic (Cancer) History: Reports: None Dermatologic History: Reports: None - Infectious Disease History Infectious Disease History: Reports: Novel Coronavirus, Other (See Below) Other Infectious Disease History: Covid May 2020 - Past Surgical History Head Surgeries/Procedures: Reports: None HEENT Surgical History: Reports: Oral Surgery Cardiovascular Surgical History: Reports: None Respiratory Surgical History: Reports: None GI Surgical History: Reports: Cholecystectomy, EGD, Hernia, Abdominal, Other (See Below) Female Surgical History: Reports: None Male Surgical History: Reports: None Endocrine Surgical History: Reports: None Neurological Surgical History: Reports: None Musculoskeletal Surgical History: Reports: None Oncologic Surgical History: Reports: None Dermatological Surgical History: Reports: None - SUBSTANCE USE Tobacco Use Status *Q: Never Tobacco User Tobacco Use Within Last Twelve Months: No Second Hand Smoke Exposure: No Days Per Week of Alcohol Use: 1 (rare) Recreational Drug Use History: No - HOME MEDS Home Medications: Home Meds Levothyroxine Sodium [Levothyroxine] 25 mcg PO DAILY 04/28/20 [History] - CURRENT (IN HOUSE) MEDS Current Meds: Current Medications Lactated Ringer's (Ringers, Lactated) 1,000 mls @ 125 mls/hr IV ASDIRECTED MIKAELA Stop: 06/27/20 23:00 Lidocaine/Sodium Bicarbonate (Lidocaine 1%/Sod Bicarbonate In Ns 8.4% 1 Ml Syringe) 0.25 ml IDERM ONETIME PRN PRN Reason: Prior to IV Start Stop: 06/27/20 18:00 Sodium Chloride (Sodium Chloride 0.9% 10 Ml Syringe) 10 ml FLUSH ASDIRECTED PRN PRN Reason: Keep Vein Open Stop: 06/27/20 18:00 Discontinued Medications Bupivacaine HCl/Epinephrine Bitart (Bupivacaine 0.5%/Epinephrine 1:200,000 50 Ml Mdv) Confirm Administered Dose 50 ml .ROUTE .STK-MED ONE Stop: 06/27/20 07:25 Cefazolin Sodium (Cefazolin 1 Gm Vial) Confirm Administered Dose 2 gm .ROUTE .STK-MED ONE Stop: 06/27/20 07:03 Fentanyl (Fentanyl 250 Mcg/5 Ml Sdv) Confirm Administered Dose 250 mcg .ROUTE .STK-MED ONE Stop: 04/07/21 07:02 Lidocaine HCl (Xylocaine-Mpf 1%) Confirm Administered Dose 4 mls @ as directed .ROUTE .STK-MED ONE Stop: 06/27/20 07:02 Midazolam HCl (Midazolam 1 Mg/Ml 2 Ml Sdv) Confirm Administered Dose 2 mg .ROUTE .STK-MED ONE Stop: 06/27/20 07:02 Ondansetron HCl (Ondansetron 4 Mg/2 Ml Sdv) Confirm Administered Dose 4 mg .ROUTE .STK-MED ONE Stop: 06/27/20 07:02 Propofol (Propofol 200 Mg/20 Ml Sdv) Confirm Administered Dose 200 mg .ROUTE .STK-MED ONE Stop: 06/27/20 07:02 Vecuronium [place] (Vecuronium 10 Mg Vial) Confirm Administered Dose 10 mg .ROUTE .STK-MED ONE Stop: 06/27/20 07:03
[2020-06-27] MEDS ORDERED: Midazolam 1 MG/ML 2 ML SDV ONE (10:18)
[2020-06-27] MEDS ORDERED: Lactated Ringers 1,000 ML ONE (10:39)
[2020-06-27] MEDS ORDERED: Ondansetron 4 MG/2 ML SDV ONE (10:58)
[2020-06-27] MEDS ORDERED: HYDROmorphone 0.5 MG/0.5 ML Syringe IVPUSH PRN (11:23)
[2020-06-27] MEDS ORDERED: fentaNYL 100 MCG/2 ML SDV IVPUSH PRN (11:23)
[2020-06-27] MEDS ORDERED: HYDROmorphone 0.5 MG/0.5 ML Syringe ONE (11:47)
[2020-06-27] MEDS ORDERED: Ketorolac 30 MG/ML SDV IVPUSH ONE (12:09)
--- NOTE | 2020-06-27 12:14 | PCM.POSTAN ---
POST ANESTHESIA ASSESSMENT - MENTAL STATUS Mental Status: Somnolent - VITAL SIGNS Vital Signs: Last Vital Signs Temp 97.0 F 06/27/20 11:58 Pulse 54 L 06/27/20 11:58 Resp 18 06/27/20 11:58 BP 113/74 06/27/20 11:58 Pulse Ox 95 06/27/20 11:58 - RESPIRATORY Respiratory Status: Respiratory Rate WNL, Airway Patent, O2 Saturation Stable, Supplemental Oxygen - CARDIOVASCULAR CV Status: Blood Pressure Stable, Slow Pulse Rate (Additional glycopyrrolate given) - GASTROINTESTINAL GI Status: No Symptoms - PAIN Pain Score: 0 - POST OP HYDRATION Hydration Status: Adequate & Stable
--- NOTE | 2020-06-27 13:06 | PCM48HPAN ---
Post Anesthesia Note - EVALUATION WITHIN 48HRS OF ANESTHETIC Vital Signs in Normal Range: Yes Patient Participated in Evaluation: Yes Respiratory Function Stable: Yes Airway Patent: Yes Cardiovascular Function Stable: Yes Hydration Status Stable: Yes Pain Control Satisfactory: Yes Nausea and Vomiting Control Satisfactory: Yes Mental Status Recovered: Yes Vital Signs: Last Vital Signs Temp 97.1 F 06/27/20 12:30 Pulse 52 L 06/27/20 12:30 Resp 15 06/27/20 12:30 BP 113/76 06/27/20 12:30 Pulse Ox 95 06/27/20 12:38 - COMMENTS/OBSERVATIONS Free Text/Narrative:: preparing to be discharged home
--- NOTE | 2020-06-27 13:26 | PCM.PRNOTE ---
- Free Text/Narrative Note: Date: 06/27/2020 Operation: laparoscopic primary repair of umbilical and epigastric hernias Surgeon: Tucker Spangler MD Findings: subcentimeter fat-containing umbilical hernia and slightly larger epigastric hernia containing large amount of fat associated with the falciform ligament. Hernias repaired primarily with 0 prolene suture after hernia sac excision. Moderate amount of serous fluid in the pelvis. Detailed Report: The patient was taken to the OR and placed in supine position. Time out was performed and general endotracheal anesthesia was initiated. The abdomen was prepped and draped in usual sterile fashion. Ioban was applied. A Veress needle was inserted at the left upper quadrant and pneumoperitoneum was established. Air was aspirated at the left lower quadrant and a 5 mm bladed trocar was inserted into the abdomen at this site. The 5 mm 30 degree laparoscope was inserted. There did not appear to be inadvertent injury with Veress placement and the needle was removed. Two additional 5 mm ports were placed along the anterior axillary line on the patient's left. The umbilical hernia was reduced manually; there was some lipomatous fat within the hernia sac. This tissue was excised using the [place] Ligasure. The hernia measured less than 1 cm. Next, the epigastric hernia was addressed. A large amount of fatty tissue associated with the falciform ligament was stuck within the hernia sac. All of this tissue was removed with the Ligasure, and all sac and contents from both hernias was re moved using an endocatch after upsizing the LUQ port to 12 mm. The endocatch bag was nearly completely full. No specimen was sent for analysis. Next, attention was turned to fascial closure. Given the small size of both hernias, we elected to perform primary repair with figure of eight 0 Prolene suture without mesh reinforcement, using the laparoscopic suture passer through small skin incisions made directly over the hernia sites. The umbilical closure was then reinforced with two interrupted 0 Prolene stitches. Serous fluid in the pelvis was noted and suctioned. The LUQ 12 mm port was removed and the fascia was closed with figure of eight 0 vicryl suture. Other ports were removed under visualization with the laparoscope and pneumoperitoneum was released. All skin incisions were closed with 4-0 subcuticular vicryl suture and dressed with dermabond. A total of 35 cc 0.5% marcaine with epinpehrine was used throughout the case for local anesthetic. The patient tolerated the operation well and was extubated in the OR prior to transfer to PACU.
[2020-06-27] MEDS ORDERED: oxyCODONE 5 MG Tab PO ONE (13:28)
[2020-06-27 14:20] VITALS: BP 99/63; PULSE 51
== END 2020-06-27 14:10 | disposition home or self-care (01) ==
LOC: JD.SDS 07:02
PROVIDERS: ATTEND Surgery
DX: K42.9 Umbilical hernia without obstruction or gangrene (principal); K43.9 Ventral hernia without obstruction or gangrene; E03.9 Hypothyroidism, unspecified; E66.9 Obesity, unspecified; E55.9 Vitamin D deficiency, unspecified; Z88.1 Allergy status to other antibiotic agents; Z88.8 Allergy status to other drugs, medicaments and biological substances; Z91.011 Allergy to milk products; Z79.899 Other long term (current) drug therapy; Z98.890 Other specified postprocedural states; Z68.33 Body mass index [BMI] 33.0-33.9, adult
CPT/HCPCS: 49652; 81025; A9270; J0690; J1170; J1885; J2250; J2405; J2704; J2710; J3010; J3490; J7120; 00790

== ENCOUNTER 2020-10-19 07:14 | Day surgery (SDC) | payer OTHER ==
[~2020-10-19 07:14] MED LIST changes: +Dexamethasone 4 MG/ML 5 ML MDV ONE; +Ketorolac 30 MG/ML SDV ONE; -Lidocaine 1% 4 ML ONE; +Rocuronium 50 MG/5 ML Vial ONE
[2020-10-19] MEDS ORDERED: Bupivacaine 0.5% 30 ML SDV ONE (07:16)
[2020-10-19] MEDS ORDERED: Lidocaine 1% with EPINEPHrine 1:100,000 10 ML MDV ONE (07:16)
[2020-10-19] MEDS ORDERED: Sodium Chloride 0.9% 50 ML SDV ONE (07:16)
--- NOTE | 2020-10-19 07:22 | PCM.PREANE ---
Preanesthetic Assessment - Procedure Proposed Procedure: Laparoscopic assisted vaginal hysterectomy with bilateral salpingectomy, possible total abdominal hysterectomy - Anesthesia/Transfusion/Family Hx Anesthesia History: Prior Anesthesia Without Reaction Family History of Anesthesia Reaction: No Transfusion History: No Prior Transfusion(s) Intubation History: Unknown - Review of Systems General: No Symptoms Pulmonary: No Symptoms Cardiovascular: No Symptoms Gastrointestinal: No Symptoms Neurological: Headache (None today) Other: Reports: Easy Bruising, Thyroid Problems, Depression, Anxiety - Physical Assessment NPO Status Date: 10/18/20 NPO Status Time: 20:30 Vital Signs: 118/89 HR 54 98.1 RR 16 96% Height: 1.73 m Weight: 101 kg ASA Class: 2 Mental Status: Alert & Oriented x3 Dentition: Reports: Normal Dentition, Caries Thyro-Mental Finger Breadths: 3 Mouth Opening Finger Breadths: 3 ROM/Head Extension: Full Lungs: Clear to Auscultation, Normal Respiratory Effort Cardiovascular: Regular Rate, Regular Rhythm - Lab Values: Awaiting for labs to process and will proceed if within acceptable limits - Allergies Allergies/Adverse Reactions: Allergies Allergy/AdvReac Type Severity Reaction Status Date / Time ciprofloxacin HCl Allergy Anaphylactic Verified 10/18/20 14:08 [From Cipro] Shock Dairy Products Allergy Other Verified 10/18/20 14:08 gluten Allergy Other Verified 10/18/20 14:08 levofloxacin [From Levaquin] Allergy Anaphylactic Verified 10/18/20 14:08 Shock - Blood Blood Available: No Product(s) Available: None - Anesthesia Plan Pre-Op Medication Ordered: None - Acknowledgements Anesthesia Type Planned: General Anesthesia Pt an Appropriate Candidate for the Planned Anesthesia: Yes Alternatives and Risks of Anesthesia Discussed w Pt/Guardian: Yes Pt/Guardian Understands and Agrees with Anesthesia Plan: Yes PreAnesthesia Questionnaire HEENT History: Reports: Allergic Rhinitis, Impaired Vision, Other (See Below) Other HEENT History: wears glasses Cardiovascular History: Other Cardiovascular History: varicose veins in right leg Respiratory History: Reports: None Gastrointestinal History: Reports: Other (See Below) Other Gastrointestinal History: abdominal hernia, umbilical hernia both repaired Genitourinary History: Reports: Other (See Below) Other Genitourinary History: demise [employer] History: Reports: Endometriosis, Fibroids, , Other (See Below) Other OB/BYN History: PCOS, 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 Hematologic History: Reports: None Immunologic History: Reports: None Oncologic (Cancer) History: Reports: None Dermatologic History: Reports: None - Infectious Disease History Infectious Disease History: Reports: None Other Infectious Disease History: Covid May 2020 - Past Surgical History Head Surgeries/Procedures: Reports: None HEENT Surgical History: Reports: Oral Surgery Cardiovascular Surgical History: Reports: None Respiratory Surgical History: Reports: None GI Surgical History: Reports: Cholecystectomy, EGD, Hernia, Abdominal Female Surgical History: Reports: None Male Surgical History: Reports: None Endocrine Surgical History: Reports: None Neurological Surgical History: Reports: None Musculoskeletal Surgical History: Reports: None Oncologic Surgical History: Reports: None Dermatological Surgical History: Reports: None - SUBSTANCE USE Tobacco Use Status *Q: Never Tobacco User Tobacco Use Within Last Twelve Months: No Second Hand Smoke Exposure: No Days Per Week of Alcohol Use: 1 Number of Drinks Per Day: 1 Total Drinks Per Week: 1 Recreational Drug Use History: No - HOME MEDS Home Medications: Home Meds Levothyroxine [Synthroid] 50 mcg PO DAILY 10/18/20 [History] Sertraline HCl [Zoloft] 50 mg PO DAILY 10/18/20 [History] - CURRENT (IN HOUSE) MEDS Current Meds: Current Medications Lactated Ringer's (Ringers, Lactated) 1,000 mls @ 125 mls/hr IV ASDIRECTED MIKAELA Stop: 10/19/20 23:00 Lidocaine/Sodium Bicarbonate (Lidocaine 1%/Sod Bicarbonate In Ns 8.4% 1 Ml Syringe) 0.25 ml IDERM ONETIME PRN PRN Reason: Prior to IV Start Stop: 10/19/20 18:00 Sodium Chloride (Sodium Chloride 0.9% 10 Ml Syringe) 10 ml FLUSH ASDIRECTED PRN PRN Reason: Keep Vein Open Stop: 10/19/20 18:00 Discontinued Medications Dexamethasone (Dexamethasone 4 Mg/Ml 5 Ml Mdv) Confirm Administered Dose 20 mg .ROUTE .STK-MED ONE Stop: 10/19/20 07:07 Fentanyl (Fentanyl 250 Mcg/5 Ml Sdv) Confirm Administered Dose 250 mcg .ROUTE .STK-MED ONE Stop: 10/19/20 07:07 Ketorolac Tromethamine (Ketorolac 30 Mg/Ml Sdv) Confirm Administered Dose 30 mg .ROUTE .STK-MED ONE Stop: 10/19/20 07:07 Lidocaine HCl (Lidocaine 1% 5 Ml Sdv) Confirm Administered Dose 5 ml .ROUTE .STK-MED ONE Stop: 10/19/20 07:07 Midazolam HCl (Midazolam 1 Mg/Ml 2 Ml Sdv) Confirm Administered Dose 2 mg .ROUTE .STK-MED ONE Stop: 10/19/20 07:07 Ondansetron HCl (Ondansetron 4 Mg/2 Ml Sdv) Confirm Administered Dose 4 mg .ROUTE .STAppbyme-MED ONE Stop: 10/19/20 07:07 Propofol (Propofol 200 Mg/20 Ml Sdv) Confirm Administered Dose 400 mg .ROUTE .STK-MED ONE Stop: 10/19/20 07:07 Rocuronium [place] (Rocuronium 50 Mg/5 Ml Vial) Confirm Administered Dose 50 mg .ROUTE .STK-MED ONE Stop: 10/19/20 07:07
[2020-10-19] MEDS ORDERED: Scopolamine 1.5 MG Transdermal Patch TOP ONE (07:41)
[2020-10-19] MEDS ORDERED: diphenhydrAMINE 50 MG/ML SDV ONE (08:18)
[2020-10-19] MEDS ORDERED: Lactated Ringers 1,000 ML ONE (08:38)
[2020-10-19] MEDS ORDERED: HYDROmorphone 0.5 MG/0.5 ML Syringe ONE (08:40)
[2020-10-19] MEDS ORDERED: Acetaminophen/oxyCODONE 325-5 MG Tab PO PRN (09:10)
[2020-10-19] MEDS ORDERED: Ondansetron 4 MG/2 ML SDV IVPUSH PRN ×2 (09:10→09:32)
--- NOTE | 2020-10-19 09:17 | PCM.OPNOTE ---
- General Post-Op/Procedure Note Date of Surgery/Procedure: 10/19/20 Operative Procedure(s): Total vaginal hysterectomy with bilateral salpingectomy Findings: Uterus was found to be enlarged with multiple fibroids largest one being approximately 6 cm. Weight to the uterus was 360 g. Ovaries were functional and normal in appearance bilaterally. Fallopian tubes functional and normal appearance bilaterally. Patient has a grade 1 cystocele, grade 1 rectocele and had grade 1 uterine descensus. Pre Op Diagnosis: 1. Abnormal uterine bleeding. 2. Dysmenorrhea. 3. Uterine fibroids Post-Op Diagnosis: Same Anesthesia Technique: General ET Tube Other Anesthesia Type: Lidocaine quarter percent with [id number] mLlocal Primary Surgeon: Rodrigue Carter Secondary Surgeon: Lauren Domínguez Anesthesia Provider: Kaylin Bone Reason Towing Pilot Was Necessary: Retraction, assistance, patient safety, quality of care. Pathology: Uterus, fibroid tumor, bilateral fallopian tubes sent in Specimen container Fluid Replacement, Intraop: 1,000 EBL in mLs: 200 Complications: None Condition: Good Free Text/Narrative:: Surgery duration: Approximately 55 minutes. Procedure: The patient was placed in supine position on the operating table. General endotracheal anesthesia was accomplished. Exam under anesthesia was performed and uterine, vaginal relaxation was felt to be adequate to allow for vaginal approach to hysterectomy. After positioning, and adequate prep and drape, the procedure was then performed. Sterile speculum was placed in the vagina and cervix was visualized. Cervix was injected with lidocaine quarter percent with epinephrine-20 mL used. A full circumference incision was made in the cervical epithelium. The bladder was pushed well back off cervix. Posterior cul-de-sac was then entered sharply without problems. Left uterosacral was crossclamped with a Enseal vessel closure system. The left uterosacral and then the right uterosacral ligament pedicles were developed using the Enseal system. The anterior cul-de-sac was then entered without problems and the uterine vasculature, cardinal ligament and broad ligament then developed using Enseal vessel closure system. The uterus was inverted at this time and upper broad ligament fallopian tube pedicles were crossclamped with Javier clamps. Specimen was totally removed. Both these pedicles were then secured with Javier stitches of #1 Vicryl. Left and right fallopian tube were normal in appearance.. Using Enseal vessel closure system each of the tubes was then removed and sent with the specimen. The patient was found to be hemostatically intact at this time. Vaginal cuff was sutured for hemostatic reasons with a running locked suture of 0 Monocryl from the 2 o'clock position to the 10 o'clock position posteriorly. Vaginal cuff was then closed from right to left side with a running locked suture of 0 Monocryl. Patient was returned to supine position and awakened from general endotracheal anesthesia. She tolerated the procedure and left the operating room in satisfactory condition.
[2020-10-19] MEDS ORDERED: HYDROmorphone 0.5 MG/0.5 ML Syringe IVPUSH PRN (09:32)
[2020-10-19] MEDS ORDERED: fentaNYL 100 MCG/2 ML SDV IVPUSH PRN (09:32)
--- NOTE | 2020-10-19 09:34 | PCM.POSTAN ---
POST ANESTHESIA ASSESSMENT - MENTAL STATUS Mental Status: Alert, Oriented - VITAL SIGNS Vital Signs: Last Vital Signs Temp 98.1 F 10/19/20 07:10 Pulse 54 L 10/19/20 07:10 Resp 16 10/19/20 07:10 BP 118/89 10/19/20 07:10 Pulse Ox 96 10/19/20 07:10 PACU vitals: 144/93 HR 61 RR 12 100% RA 97.6 - RESPIRATORY Respiratory Status: Respiratory Rate WNL, Airway Patent, O2 Saturation Stable - CARDIOVASCULAR CV Status: Pulse Rate WNL, Blood Pressure Stable - GASTROINTESTINAL GI Status: No Symptoms - PAIN Pain Score: 0 - POST OP HYDRATION Hydration Status: Adequate & Stable
--- NOTE | 2020-10-19 10:04 | PCM48HPAN ---
Post Anesthesia Note - EVALUATION WITHIN 48HRS OF ANESTHETIC Vital Signs in Normal Range: Yes Patient Participated in Evaluation: Yes Respiratory Function Stable: Yes Airway Patent: Yes Cardiovascular Function Stable: Yes Hydration Status Stable: Yes Pain Control Satisfactory: Yes Nausea and Vomiting Control Satisfactory: Yes Mental Status Recovered: Yes Vital Signs: Last Vital Signs Temp 36.4 C 10/19/20 09:22 Pulse 56 L 10/19/20 09:50 Resp 11 L 10/19/20 09:50 BP 138/83 10/19/20 09:50 Pulse Ox 88 L 10/19/20 09:54
[2020-10-19 12:01] VITALS: PULSE 57
[2020-10-19 13:07] VITALS: BP 134/85
[2020-10-19] MEDS ORDERED: Ketorolac 30 MG/ML SDV IVPUSH ONE (13:30)
[2020-10-19] MEDS ORDERED: Ibuprofen 600 MG Tab PO PRN (19:30)
== END 2020-10-19 13:00 | disposition home or self-care (01) ==
LOC: JD.SDS 07:14
PROVIDERS: ATTEND Obstetrics & Gynecology
DX: D25.1 Intramural leiomyoma of uterus (principal); N72 Inflammatory disease of cervix uteri; R23.4 Changes in skin texture; N80.0 Endometriosis of uterus; N83.8 Other noninflammatory disorders of ovary, fallopian tube and broad ligament; N73.6 Female pelvic peritoneal adhesions (postinfective); N81.2 Incomplete uterovaginal prolapse; E03.9 Hypothyroidism, unspecified; E66.9 Obesity, unspecified; Z68.33 Body mass index [BMI] 33.0-33.9, adult; Z88.1 Allergy status to other antibiotic agents; Z88.8 Allergy status to other drugs, medicaments and biological substances; Z91.011 Allergy to milk products; Z86.16 Personal history of COVID-19
CPT/HCPCS: 36415; 58291; 86850; 86900; 86901; A9270; J0690; J1100; J1170; J1200; J1885; J2250; J2405; J2704; J2710; J3010; J7120; 00944; J3490